=== PATIENT | male | born 1965 | race Caucasian/White ===

== ENCOUNTER → 2016-09-26 | Day surgery (SDC) | payer BC ==
[~2016-09-26] MED LIST: ANEXSIA 7.5/3251 TA1 PO; CENTRUM PO; CHANTIX1 MG PO; FLEXERIL10 MG PO; FLONASE 0.05% N16 G1; HYDROCODON-ACE1 EAC5 PO; HYDROCODONE/APA1 T15 PO; KLONOPIN0.5 MG PO; LASIX20 MG PO; LISINOPRIL20 MG PO; LOPRESSOR PO; LORTAB 5/500 TA1 TA1 PO; LORTAB 7.5-5001 TAB PO; METOPROLOL SUCC25 MG PO; NEXIUM PO; NORVASC10 MG PO; POTASSIUM CHLO10 ME1 PO; PRILOSEC PO; PRILOSEC20 M1 PO; PRINIVIL40 MG PO; RESTORIL15 MG PO; VENLAFAXINE H37.5 M1 PO; VENLAFAXINE HCL75 M2 PO; XANAX0.5 MG PO
--- NOTE | ~2016-09-26 | OR ---
Unit #: [id number] #: [id number] Patient: KALEIGH TODD [id number] [address] [place], [place] [address] [id number] O MR#: [id number] NAME: KALEIGH TODD ROOM: Date of Procedure: 09/26/2016 Admission Date: 09/26/2016 Surgeon: Toby Cordova M.D. : 1965 Attending Physician: Toby Cordova M.D. Primary Care Physician: Ellen Millan M.D. OPERATIVE REPORT PREOPERATIVE DIAGNOSES Back pain, radiculopathy, degenerative facet disease, degenerative disk disease. POSTOPERATIVE DIAGNOSES Back pain, radiculopathy, degenerative facet disease, degenerative disk disease. PROCEDURE PERFORMED Lumbar facet injection x2 levels with intravenous sedation and fluoroscopic guidance for needle localization. INDICATIONS FOR PROCEDURE The patient is a 51-year-old male with return of back pain greater than lower extremity pain associated with L4-L5 and L5-S1 facet disease. The patient has failed to respond to rehabilitative treatment and medical management alone. Epidural steroid injections in the past help to settle his right leg pain down that is stayed settled. The back pain is still significant. Facet injections were done completed about 7 months ago. He did very well for 6 months or so with 60% to 70% improvement of his symptom complex. He had return of the symptoms down in the typical distribution. Based on history, pathology, and symptomatology, we are going to proceed with a repeat injection at this point. DESCRIPTION OF PROCEDURE The patient was placed in a prone position. Standard monitors were applied. Sterile prep and drape of the lumbar area were performed. The skin then overlying the left L4-L5 and L5-S1 facets localized with 1% lidocaine. Using biplanar fluoroscopy, a 22-gauge Quincke point needle was then advanced down into these respective facet joints. After confirming proper positioning with fluoroscopy, 1 mL of a mixture of 80 mg of Depo-Medrol and 3 mL of 0.25% bupivacaine were deposited in each facet joint, 0.5 mL within the joint and 0.5 mL just outside the joint. The exact same procedure was then repeated on the right at the L4-L5 and L5-S1 levels. Again after confirming proper positioning, depositing the same medication. The needles were flushed and removed. The patient tolerated the entire procedure well and was discharged to the recovery room in stable condition. Dictated by... Unit #: [id number] #: [id number] Patient: KALEIGH TODD Mike Stanley/almaz TD: 09/26/2016 22:43 JOB #: [id number] CC: [email or web address]/invision Please Delete OPERATIVE REPORT Page 1 of 1 X Toby Cordova MD X PROCEDURE OPERATIVE NOTE
== END | disposition home or self-care (01) ==
LOC: CCSC 06:51
DX: M51.16 Intervertebral disc disorders with radiculopathy, lumbar region (principal); M53.87 Other specified dorsopathies, lumbosacral region; M53.86 Other specified dorsopathies, lumbar region; I10 Essential (primary) hypertension; K21.9 Gastro-esophageal reflux disease without esophagitis; Z79.899 Other long term (current) drug therapy
CPT/HCPCS: J1040; J2250

== ENCOUNTER → 2016-10-10 | Day surgery (SDC) | payer BC ==
--- NOTE | ~2016-10-10 | OR ---
Unit #: [id number] #: [id number] Patient: KALEIGH TODD [id number] [address] [place], [place] [address] [id number] O MR#: [id number] NAME: KALEIGH TODD ROOM: Date of Procedure: 10/10/2016 Admission Date: 10/10/2016 Surgeon: Toby Cordova M.D. : 1965 Attending Physician: Toby Cordova M.D. Primary Care Physician: Ellen Millan M.D. OPERATIVE REPORT JOB NOTE: CC: [facility] PREOPERATIVE DIAGNOSES Back pain, degenerative lumbar facet disease, lumbar spondylosis. POSTOPERATIVE DIAGNOSES Back pain, degenerative lumbar facet disease, lumbar spondylosis. PROCEDURE PERFORMED Lumbar facet injection x2 levels with intravenous sedation and fluoroscopic guidance for needle localization. INDICATIONS FOR PROCEDURE The patient is 51-year-old male with worsening back and some leg pain, which is due to lumbar facet disease. He is not a surgical candidate. He is treated medically with p.r.n. facet injections. Recent injection which helped to significant decrease in the leg pain, but is still having back pain. It is not back down to its usual level, so proceed with a second injection today. The patient gotten good long-term improvement with this. DESCRIPTION OF PROCEDURE The patient was placed in a prone position. Standard monitors were applied. Sterile prep and drape of the lumbosacral area was performed. The skin then overlying the right-sided L4-L5 and L5-S1 facet joints localized with 1% lidocaine. At each of these levels, a 22-gauge Quincke point spinal needle was advanced with fluoroscopic guidance to bring the edge of the needle into the edge of those respective facet joints at those levels. After confirming proper positioning with fluoroscopy, a dose of 1 mL of a mixture of 80 mg of Depo-Medrol and 3 mL of 0.25% bupivacaine were deposited. The needles were flushed and removed. The patient tolerated the procedure without complaint. The exact same procedure was then repeated on the opposite side at the L4-L5 and L5-S1 levels. Again after localizing the skin, needles were advanced with fluoroscopic guidance to bring the needle tip to within the edge of those respective facet joints. Once this was confirmed, a dose of 1 mL of the previous mixture was deposited, the needles were flushed and removed. The patient tolerated the entire procedure well and was discharged to the recovery room in stable condition. Dictated by... Toby Cordova M.D. Unit #: [id number] #: [id number] Patient: KALEIGH TODD POLLYP/almaz TD: 10/11/2016 00:56 JOB #: [id number] OPERATIVE REPORT Page 1 of 1 X Toby Cordova MD X PROCEDURE OPERATIVE NOTE
== END | disposition home or self-care (01) ==
LOC: CCSC 07:17
DX: M47.816 Spondylosis without myelopathy or radiculopathy, lumbar region (principal); M53.86 Other specified dorsopathies, lumbar region; I10 Essential (primary) hypertension; K21.9 Gastro-esophageal reflux disease without esophagitis; Z79.51 Long term (current) use of inhaled steroids; Z79.899 Other long term (current) drug therapy
CPT/HCPCS: J1040; J2250